=== PATIENT | male | born 1990 | race American Indian/Alaskan Native ===

== ENCOUNTER 2021-06-15 11:22 | Emergency (ER) | payer SELFPAY ==
[2021-06-15] MEDS ORDERED: ONDANSETRON 4 MG/2 ML INJ IV ONE (11:38)
[2021-06-15] MEDS ORDERED: KETOROLAC 30 MG/1 ML INJ IV ONE (11:38)
[2021-06-15] MEDS ORDERED: SODIUM CHLORIDE 0.9% 1000 ML 1,000 ML IV ONE (11:38)
--- NOTE | 2021-06-15 11:51 | Emergency Department Report ---
ED General Adult HPI - General Chief complaint: Back Pain/Injury Stated complaint: BACK PAIN Time Seen by Provider: 06/15/21 11:28 Source: patient Mode of arrival: Ambulatory Limitations: No Limitations - History of Present Illness Initial comments: 30-year-old male who denies any significant past medical history presents to the ER today with complaints of low back pain. Onset 5 to 6 days. States that the pain has been constant in nature, but this feels like his pain getting worse. He denies any particular injury, but states that he does a lot of lifting at work. He states that last night he felt a sudden sharp pain in his lower back after which he started having chills. He reports urinary frequency and urinary odor but denies any hematuria, urgency or dysuria or hesitancy. He states that the pain in his lower back radiates into his groin and he has been having some mild testicular discomfort but no testicular swelling or rednes. He also reports intermittent crampy pain to his lower abdomen. She states that 2 to 3 days ago he did have some subjective fever but this has since resolved. He reports nausea but no vomiting. He denies penile discharge. He states that he has had the same sexual partner for 7 years. Patient states that he recently came back from [place] 2 weeks ago, while he was in [place] he had a upper respiratory infection with a cough. He states that the cough and the other symptoms have gotten better, but the cough started again today. He reports no sore throat, rhinorrhea, nasal congestion, shortness of breath, or wheezing. He denies alcohol abuse or any illicit drug use. MD Complaint: Back pain, groin pain, testicular pain -: week(s) (1) - Related Data Previous Rx's Medication Instructions Recorded Last Taken Type Ketorolac [Toradol] 10 mg PO Q4HR PRN #20 tablet 06/15/21 Unknown Rx methOCARBAMOL [Robaxin TAB] 750 mg PO Q8H PRN #30 tablet 06/15/21 Unknown Rx Allergies Allergy/AdvReac Type Severity Reaction Status Date / Time No Known Allergies Allergy Verified 06/15/21 12:22 ED Review of Systems ROS: Stated complaint: BACK PAIN Other details as noted in HPI Comment: All other systems reviewed and negative Constitutional: chills, fever Respiratory: cough Gastrointestinal: abdominal pain, nausea Genitourinary: frequency, testicular pain, other (Urinary odor) Musculoskeletal: back pain ED Past Medical Hx - Medications Home Medications: Home Medications Medication Instructions Recorded Confirmed Last Taken Type Ketorolac [Toradol] 10 mg PO Q4HR PRN #20 tablet 06/15/21 Unknown Rx methOCARBAMOL [Robaxin TAB] 750 mg PO Q8H PRN #30 tablet 06/15/21 Unknown Rx ED Physical Exam - General Limitations: No Limitations General appearance: alert, in no apparent distress - Head Head exam: Present: atraumatic, normocephalic, normal inspection - Eye Eye exam: Present: normal appearance, PERRL, EOMI Pupils: Present: normal accommodation - ENT ENT exam: Present: normal exam, mucous membranes moist - Neck Neck exam: Present: normal inspection, full ROM - Respiratory Respiratory exam: Present: normal lung sounds bilaterally. Absent: wheezes, rales - Cardiovascular Cardiovascular Exam: Present: regular rate, normal rhythm, normal heart sounds - GI/Abdominal GI/Abdominal exam: Present: soft, tenderness (Mild tenderness to palpation right lower quadrant and suprapubic area without guarding or rebound.). Absent: distended, guarding - exam: Present: testicular tenderness (Mild left testicular tenderness), circumcision, other (Channel Lip Wetter present). Absent: urethral discharge, scrotal swelling, vertical testicular lie External exam: Present: normal external exam - Extremities Exam Extremities exam: Present: normal inspection - Back Exam Back exam: Present: normal inspection, full ROM. Absent: CVA tenderness (R), CVA tenderness (L) - Neurological Exam Neurological exam: Present: alert, oriented X3, CN II-XII intact, normal gait ED Course Vital Signs 06/15/21 06/15/21 11:24 12:25 Temperature 98.6 F 98.2 F Pulse Rate 77 79 Respiratory 18 16 Rate Blood Pressure 112/72 114/76 Blood Pressure 114/76 [Left] O2 Sat by Pulse 98 98 Oximetry ED Medical Decision Making - Lab Data Result diagrams: 06/15/21 11:49 06/15/21 11:49 - Radiology Data Radiology results: report reviewed Patient: TERRI PIEDRA MR#: [id number] : 1990 Acct:[id number] Age/Sex: 30 / M ADM Date: 06/15/21 Loc: ED Attending Dr: Ordering Physician: PITER MCKEON Date of Service: 06/15/21 Procedure(s): US testicular doppler comp Accession Number(s): [id number] cc: PITER MCKEON ULTRASOUND SCROTUM INDICATION / CLINICAL INFORMATION: Testicular pain. COMPARISON: None available. FINDINGS -- RIGHT: TESTIS: Size = 3.5 x 2.5 x 4.6 cm. - Appearance: No significant abnormality. - Cyst / Mass: None. - Color Doppler Flow: No significant abnormality. EPIDIDYMIS: No significant abnormality. HYDROCELE: None. VARICOCELE: None demonstrated. FINDINGS -- LEFT: TESTIS: Size = 4.1 x 2.2 x 3.5 cm. - Appearance: No significant abnormality. - Cyst / Mass: None. - Color Doppler Flow: No significant abnormality. EPIDIDYMIS: Probable cyst at the epididymal head measuring 1.1 cm is incompletely imaged. HYDROCELE: None. VARICOCELE: None demonstrated. ADDITIONAL FINDINGS: None. IMPRESSION: 1. Testicles unremarkable in appearance and demonstrate appropriate blood flow. 2. Probable left epididymal head cyst. Signer Name: Cuauhtemoc Hoyos MD Signed: 06/15/2021 12:53 PM Workstation Name: [id number] Transcribed By: ES Dictated By: Cuauhtemoc Hoyos MD Electronically Authenticated By: Cuauhtemoc Hoyos MD Signed Date/Time: 06/15/21 1253 DD/ 1251 TD/TT: Patient: TERRI PIEDRA MR#: [id number] : 1990 Acct:[id number] Age/Sex: 30 / M ADM Date: 06/15/21 Loc: ED Attending Dr: Ordering Physician: PITER MCKEON Date of Service: 06/15/21 Procedure(s): XR chest routine 2V Accession Number(s): [id number] cc: PITER MCKEON Fluoro Time In Minutes: CHEST 2 VIEWS INDICATION: Cough. COMPARISON: None. FINDINGS: Support devices: None. Heart: Within normal limits. Lungs/Pleura: No acute air space or interstitial disease. No significant pleural effusion. IMPRESSION: No acute findings. Signer Name: Cuauhtemoc Hoyos MD Signed: 06/15/2021 12:40 PM Workstation Name: [id number] Transcribed By: ES Dictated By: Cuauhtemoc Hoyos MD Electronically Authenticated By: Cuauhtemoc Hoyos MD Signed Date/Time: 06/15/21 1240 DD/ 1239 TD/TT: - Medical Decision Making All labs reviewed and stable. UA does not suggest UTI. CXR normal. Testicular US normal. Pt currently sitting comfortable in recliner, on his phone. He is not in any acute distress. He is not toxic or ill appearing. He is neuro intact with normal gait. He is medically stable with stable vital signs. He has no saddle anesthesia, bowel bladder incontinence, he is afebrile, he has a nonsurgical a bdominal exam, he is not in any acute pain or respiratory distress. Discussed all results with patient. His back pain could be musculoskeletal and related to strenuous activity from work but he will be given referral to urology if he continues to have urinary symptoms, as well as follow-up with his primary care doctor for continued evaluation. Also recommend that he get an outpatient COVID-19 test. Patient will be given medication to help with his symptoms. Patient expressed understanding of instructions and agree with plan. Patient stable at time of discharge. Critical care attestation.: If time is entered above; I have spent that time in minutes in the direct care of this critically ill patient, excluding procedure time. ED Disposition Clinical Impression: Low back pain, Testicular pain, unspecified, Viral URI with cough Disposition: 01 HOME / SELF CARE / HOMELESS Is pt being admited?: No Does the pt Need Aspirin: No Condition: Stable Instructions: Upper Respiratory Infection, Adult, Back Exercises, [id number], Testicular Self-Exam, Cough, Adult Additional Instructions: I recommend taking the toradol and robaxin as prescribed for pain. You can take over the counter cough cold medications for your cough. You may want to consider doing a COVID test at local pharmacy or urgent care. I do recommend following up with urologist if you continue having symptoms of testicular discomfort or urinary symptoms. I also recommend following up with your PCP next week. Return to ED if worse. Prescriptions: methOCARBAMOL [Robaxin TAB] 750 mg PO Q8H PRN #30 tablet PRN Reason: Muscle Spasm Ketorolac [Toradol] 10 mg PO Q4HR PRN #20 tablet PRN Reason: Pain Referrals: [facility] [Provider Group] - 3-5 Days [facility] [Provider Group] - 3-5 Days RHEA HOSKINS MD [Staff Physician] - 3-5 Days (Urologist) Forms: Work/School Release Form(ED) Time of Disposition: 14:08
[2021-06-15 12:21] LABS: Basophils % (Auto) 0.2 % (0.0-1.8); Eosinophils # (Auto) 0.1 K/mm3 (0.0-0.4); Eosinophils % (Auto) 0.8 % (0.0-4.3); Hematocrit 44.7 % (35.5-45.6); Hemoglobin 14.2 gm/dl (11.8-15.2); Lymphocytes # (Auto) 1.4 K/mm3 (1.2-5.4); Lymphocytes % (Auto) 22.4 % (13.4-35.0); Mean Corpuscular HGB Conc 32 % (32-34); Mean Corpuscular Volume 88 fl (84-94); Monocytes # (Auto) 0.7 K/mm3 (0.0-0.8); Platelet Count 259 K/mm3 (140-440); Red Blood Count 5.09 M/mm3 (3.65-5.03); Red Cell Distribution Width 13.9 % (13.2-15.2)
[2021-06-15 12:27] VITALS: BP 114/76
[2021-06-15 12:35] LABS: Alanine Aminotransferase 25 units/L (7-56); BUN/Creatinine Ratio 14; Blood Urea Nitrogen 13 mg/dL (9-20); Calcium 9.4 mg/dL (8.4-10.2); Hemolysis Index 107
--- NOTE | 2021-06-15 12:44 | XRay Report ---
CHEST 2 VIEWS INDICATION: Cough. COMPARISON: None. FINDINGS: Support devices: None. Heart: Within normal limits. Lungs/Pleura: No acute air space or interstitial disease. No significant pleural effusion. IMPRESSION: No acute findings. Signer Name: Cuauhtemoc Hoyos MD Signed: 06/15/2021 12:40 PM Workstation Name: [id number]
--- NOTE | 2021-06-15 12:57 | Ultrasound Report ---
ULTRASOUND SCROTUM INDICATION / CLINICAL INFORMATION: Testicular pain. COMPARISON: None available. FINDINGS -- RIGHT: TESTIS: Size = 3.5 x 2.5 x 4.6 cm. - Appearance: No significant abnormality. - Cyst / Mass: None. - Color Doppler Flow: No significant abnormality. EPIDIDYMIS: No significant abnormality. HYDROCELE: None. VARICOCELE: None demonstrated. FINDINGS -- LEFT: TESTIS: Size = 4.1 x 2.2 x 3.5 cm. - Appearance: No significant abnormality. - Cyst / Mass: None. - Color Doppler Flow: No significant abnormality. EPIDIDYMIS: Probable cyst at the epididymal head measuring 1.1 cm is incompletely imaged. HYDROCELE: None. VARICOCELE: None demonstrated. ADDITIONAL FINDINGS: None. IMPRESSION: 1. Testicles unremarkable in appearance and demonstrate appropriate blood flow. 2. Probable left epididymal head cyst. Signer Name: Cuauhtemoc Hoyos MD Signed: 06/15/2021 12:53 PM Workstation Name: [id number]
[2021-06-15 14:01] LABS: Bilirubin,Urine NEG (Negative); Blood,Urine NEG (Negative); Color,Urine Yellow (Yellow); Mucus,Urine 1+ /HPF; Protein,Urine <15 mg/dL mg/dL (Negative); Urobilinogen,Urine < 2.0 mg/dL (<2.0)
== END 2021-06-15 14:32 | disposition home or self-care (01) ==
LOC: ED 11:22
DX: M54.50 Low back pain, unspecified (principal); J06.9 Acute upper respiratory infection, unspecified; B97.89 Other viral agents as the cause of diseases classified elsewhere; N50.812 Left testicular pain
CPT/HCPCS: 36415; 71046; 80053; 81001; 83690; 85025; 93975; 96361; 96374; 96375; 99284; J1885; J2405; J7030; Q0162